=== PATIENT | male | born 1985 | race Caucasian/White ===

== ENCOUNTER → 2017-07-18 | Day surgery (SDC) | payer OTHER ==
[~2017-07-18] MED LIST: LACTATED RINGER'S 1000 ML INJ 1,000 ML ONE; PROPOFOL 500 MG/50 ML BTL IV ONE
--- NOTE | 2017-07-18 13:19 | GIPROC ---
[facility] [address] [facility], [address] COLONOSCOPY PROCEDURE REPORT EXAM DATE: 07/18/2017 PATIENT NAME: Robert Rneee MR #: [id number] BIRTHDATE: 1985 ENDOSCOPIST: Renny Major MD ORDER #: [id number] SUPERVISOR CELLARS: STATUS: outpatient INDICATIONS: The patient is a 32 yr old male here for a colonoscopy due to history of colon polyps, occasional rectal bleeding; chronic loose stool; his father has some type of colitis. Family history of colon polyps. MEDICATIONS: None and Per Anesthesia. PREP QUALITY: good ESTIMATED BLOOD LOSS: None CONSENT: The patient understands the risks and benefits of the procedure and understands that these risks include, but are not limited to: sedation, allergic reaction, infection, perforation and/or bleeding. Alternative means of evaluation and treatment include, among others: physical exam, x-rays, and/or surgical intervention. The patient elects to proceed with this endoscopic procedure. medical equipment was checked for proper function. Hand hygiene and appropriate measures for infection prevention was taken. After the risks, benefits and alternatives of the procedure were thoroughly explained, Informed consent was verified, confirmed and timeout was successfully executed by the treatment team. A digital exam was performed The EC-3890Li ([id number]) endoscope was introduced through the anus and advanced to the cecum, which was identified by both the appendix and ileocecal valve. The instrument was then slowly withdrawn as the colon was fully examined. A diminutive ascendng colon polyp was removed with biopsy forceps. Random mucosal biopsies were taken to check for subclinical colitis. Scant diverticulosis was noted in the transverse colon. Retroflexion was performed No niternal hmorrhoids or other lesions were noted to explain the rectal bleeding. The scope was then completely withdrawn from the patient and the procedure terminated. ADVERSE EVENTS: There were no complications. IMPRESSIONS: As above RECOMMENDATIONS: 1. High fiber diet, 25gm/day with consumption of at least 2 quarts of liquid/day. 2. Await biopsy results. Biopsy results will not be ready for 7-10 days. If you don't hear from us in two weeks, call our office for results. RECALL: Depending on pathology report, but likely 5 years. Renny Major MD eSigned: Renny Major MD 07/18/2017 1:19 PM cc: PATIENT NAME: Robert Renee MR#: [id number]
--- NOTE | 2017-07-18 13:19 | GIPROC ---
[facility] [address] [facility], [address] COLONOSCOPY PROCEDURE REPORT EXAM DATE: 07/18/2017 PATIENT NAME: Robert Renee MR #: [id number] BIRTHDATE: 1985 ENDOSCOPIST: Renny Major MD ORDER #: [id number] DOG SITTER: STATUS: outpatient INDICATIONS: The patient is a 32 yr old male here for a colonoscopy due to history of colon polyps, occasional rectal bleeding; chronic loose stool; his father has some type of colitis. Family history of colon polyps. MEDICATIONS: None and Per Anesthesia. PREP QUALITY: good ESTIMATED BLOOD LOSS: None CONSENT: The patient understands the risks and benefits of the procedure and understands that these risks include, but are not limited to: sedation, allergic reaction, infection, perforation and/or bleeding. Alternative means of evaluation and treatment include, among others: physical exam, x-rays, and/or surgical intervention. The patient elects to proceed with this endoscopic procedure. medical equipment was checked for proper function. Hand hygiene and appropriate measures for infection prevention was taken. After the risks, benefits and alternatives of the procedure were thoroughly explained, Informed consent was verified, confirmed and timeout was successfully executed by the treatment team. A digital exam was performed The EC-3890Li ([id number]) endoscope was introduced through the anus and advanced to the cecum, which was identified by both the appendix and ileocecal valve. The instrument was then slowly withdrawn as the colon was fully examined. A diminutive ascendng colon polyp was removed with biopsy forceps. Random mucosal biopsies were taken to check for subclinical colitis. Scant diverticulosis was noted in the transverse colon. Retroflexion was performed No niternal hmorrhoids or other lesions were noted to explain the rectal bleeding. The scope was then completely withdrawn from the patient and the procedure terminated. ADVERSE EVENTS: There were no complications. IMPRESSIONS: As above RECOMMENDATIONS: 1. High fiber diet, 25gm/day with consumption of at least 2 quarts of liquid/day. 2. Await biopsy results. Biopsy results will not be ready for 7-10 days. If you don't hear from us in two weeks, call our office for results. RECALL: Depending on pathology report, but likely 5 years. Renny Major MD eSigned: Renny Major MD 07/18/2017 1:19 PM cc: PATIENT NAME: Robert Renee MR#: [id number]
--- NOTE | 2017-07-18 13:19 | GIPROC ---
[facility] [address] [facility], [address] COLONOSCOPY PROCEDURE REPORT EXAM DATE: 07/18/2017 PATIENT NAME: Robert Renee MR #: [id number] BIRTHDATE: 1985 ENDOSCOPIST: Renny Major MD ORDER #: [id number] LOGISTICS VICE PRESIDENT: STATUS: outpatient INDICATIONS: The patient is a 32 yr old male here for a colonoscopy due to history of colon polyps, occasional rectal bleeding; chronic loose stool; his father has some type of colitis. Family history of colon polyps. MEDICATIONS: None and Per Anesthesia. PREP QUALITY: good ESTIMATED BLOOD LOSS: None CONSENT: The patient understands the risks and benefits of the procedure and understands that these risks include, but are not limited to: sedation, allergic reaction, infection, perforation and/or bleeding. Alternative means of evaluation and treatment include, among others: physical exam, x-rays, and/or surgical intervention. The patient elects to proceed with this endoscopic procedure. medical equipment was checked for proper function. Hand hygiene and appropriate measures for infection prevention was taken. After the risks, benefits and alternatives of the procedure were thoroughly explained, Informed consent was verified, confirmed and timeout was successfully executed by the treatment team. A digital exam was performed The EC-3890Li ([id number]) endoscope was introduced through the anus and advanced to the cecum, which was identified by both the appendix and ileocecal valve. The instrument was then slowly withdrawn as the colon was fully examined. A diminutive ascendng colon polyp was removed with biopsy forceps. Random mucosal biopsies were taken to check for subclinical colitis. Scant diverticulosis was noted in the transverse colon. Retroflexion was performed No niternal hmorrhoids or other lesions were noted to explain the rectal bleeding. The scope was then completely withdrawn from the patient and the procedure terminated. ADVERSE EVENTS: There were no complications. IMPRESSIONS: As above RECOMMENDATIONS: 1. High fiber diet, 25gm/day with consumption of at least 2 quarts of liquid/day. 2. Await biopsy results. Biopsy results will not be ready for 7-10 days. If you don't hear from us in two weeks, call our office for results. RECALL: Depending on pathology report, but likely 5 years. Renny Major MD eSigned: Renny Major MD 07/18/2017 1:19 PM cc: PATIENT NAME: Robert Renee MR#: [id number]
== END | disposition home or self-care (01) ==
LOC: ESDC 10:46
DX: R19.7 Diarrhea, unspecified (principal); Z86.010 Personal history of colon polyps; K62.5 Hemorrhage of anus and rectum; Z83.71 Family history of colonic polyps; D12.2 Benign neoplasm of ascending colon; K57.90 Diverticulosis of intestine, part unspecified, without perforation or abscess without bleeding
CPT/HCPCS: 00810; 45380; 88305; J3010; J7120